=== PATIENT | female | born 1935 | race African-American/Black ===

== ENCOUNTER 2016-12-09 18:07 | Emergency (ER) ==
--- NOTE | 2016-12-09 19:59 | PROVIDER DOCUMENTATION ---
HPI-General Adult <Sya Haas - Last Filed: 12/09/16 20:38> - General Source: patient - History of Present Illness -Gen Adult Nature of Presenting Problems: Chuck RUBIN PRESENTS TO ED WITH C/O PT STATES SHE HAS HAD LOWER EXTREMITIES SWELLING FOR A FEW YEARS. PT STATES SHE HAS DIABETES, THYROID PROBLEMS AND GOUT. Location of Pain/Injury: reports: lower extremity Pain Radiation: reports: no radiation Quality of Pain: reports: aching Severity: reports: moderate Onset/Duration: reports: other (2 YEARS) Timing: reports: still present Context/Activities at Onset: reports: light activity Modifying Factors: improves with: nothing Similar Symptoms Previously?: No Recently seen or treated by another doctor?: No <Luis Eduardo Saucedo - Last Filed: 12/09/16 20:44> - General Chief Complaint: Edema Stated Complaint: SWOLLEN LEGS Time Seen by Provider: 12/09/16 19:43 Allergies/Adverse Reactions: Patient Allergies Allergy/AdvReac Type Severity Reaction Status Date / Time No Known Allergies Allergy Verified 12/09/16 18:42 Home Medications: Home Medication List Medication Instructions Recorded Confirmed Last Taken Type Furosemide [Lasix] 40 mg PO DAILY 12/09/16 12/09/16 Unknown History Spironolact/Hydrochlorothiazid 25 mg PO DAILY 12/09/16 12/09/16 Unknown History [Aldactazide 25-25 Tablet] Review of Systems - Adult - REVIEW OF SYSTEMS - ADULT Constitutional: denies: chills, fever Eyes: reports: no symptoms reported Ears, Nose, Mouth & Throat: reports: no symptoms reported Cardiovascular: denies: chest pain, palpitations, syncope Respiratory: denies: cough, shortness of breath, wheezing Gastrointestinal: denies: abdominal pain, diarrhea, nausea, vomiting Genitourinary: reports: no symptoms reported Musculoskeletal: denies: back pain, neck pain Integumentary: reports: other (SWELLING OF LOWER EXTREMITIES.) Neurological: denies: dizziness/vertigo, headache/migraines, syncope Psychiatric: reports: no symptoms reported Endocrine: reports: no symptoms reported Hematologic/Lymphatic: reports: no symptoms reported Allergic/Immunologic: reports: no symptoms reported All Other Systems: Reviewed and Negative <Luis Eduardo Saucedo - Last Filed: 12/09/16 20:44> Past History - Adult - PAST MEDICAL HISTORY-ADULT Review of Records: reports: Nursing Assessment Review, Medications Reviewed Endocrine/Immune: reports: Diabetes - IMMUNIZATION STATUS Childhood Immunizations: See Nurse Assessment Flu Vaccine: See Nurse Assessment - SOCIAL HISTORY Smoking: denies Substance Use: denies Alcohol Use Frequency: never Living Situation: family <Luis Eduardo Saucedo - Last Filed: 12/09/16 20:44> Physical Exam-General - CONSTITUTIONAL General Appearance: alert, mild distress - EYES Eyes: PERRL/EOMI, pink conjunctivae - HEAD, EARS, NOSE, MOUTH & THROAT HENMT: normocephalic/atraumatic, moist mucous membranes - NECK Neck: non-tender, full range of motion, supple - RESPIRATORY Respiratory: chest non-tender, lungs clear, normal breath sounds - CARDIOVASCULAR Cardiovascular: normal peripheral pulses, regular rate, rhythm - GASTROINTESTINAL (ABDOMEN) Abdominal Exam: normal bowel sounds, non tender, soft - LYMPHATIC Lymphatic: no adenopathy - MUSCULOSKELETAL Back Exam: normal inspection, no CVA tenderness, no vertebral tenderness Extremity: normal range of motion, pedal edema, swelling, tenderness - SKIN Integumentary: normal color, normal turgor, warm/dry - NEUROLOGIC Neurologic: grossly normal - PSYCHIATRIC Psych/Mental Status: oriented x 3 <Luis Eduardo Saucedo - Last Filed: 12/09/16 20:44> Progress - PLAN OF CARE/RESULTS Progress/Plan/Lab Results: Laboratory Tests 12/09/16 12/09/16 19:58 19:58 WBC 5.69 RBC 3.62 L Hgb 10.4 L Hct 33.1 L MCV 91.4 MCH 28.7 MCHC 31.4 L RDW Std Deviation 16.1 H Plt Count 288 MPV 8.8 Immature Gran % (Auto) 0.2 Neut % (Auto) 56.1 Lymph % (Auto) 30.9 [place] % (Auto) 10.5 H Eos % (Auto) 1.6 Baso % (Auto) 0.7 Immature Gran # (Auto) 0.01 Neut # (Auto) 3.19 Lymph # (Auto) 1.76 [place] # (Auto) 0.60 H Eos # (Auto) 0.09 Baso # (Auto) 0.04 Sodium 136 Potassium 4.7 Chloride 97 L Carbon Dioxide 27 Anion Gap 12 BUN 23 H Creatinine 1.9 H Estimated GFR/1.73 m2 25 BUN/Creatinine Ratio 12 Glucose 103 Calculated Osmolality 276 Calcium 9.3 Total Bilirubin 0.30 AST 19 ALT 12 Alkaline Phosphatase 97 Total Protein 7.0 Albumin 4.2 Globulin 3.0 Albumin/Globulin Ratio 2.0 Orders Category Date Time Status CBC WITH DIFF [HEME] Stat Lab 12/09/16 19:58 Completed COMPREHENSIVE METABOLIC PANEL [CHEM] Stat Lab 12/09/16 19:58 Completed TSH Stat Lab 12/09/16 19:58 Received Vital Signs - 24 hr 12/09/16 18:37 Temperature 99 F Pulse Rate 62 Respiratory 18 Rate Blood Pressure 169/67 O2 Sat by Pulse 100 Oximetry <Luis Eduardo Saucedo - Last Filed: 12/09/16 20:44> Departure - Departure Certified Medical Emergency: Emergent <Say Haas - Last Filed: 12/09/16 20:38> - Departure Time of Disposition Order: 20:44 Certified Medical Emergency: Emergent <Luis Eduardo Saucedo - Last Filed: 12/09/16 20:44> - Departure DIAGNOSIS: Chronic edema Chronic renal insufficiency Qualifiers: Chronic kidney disease stage: stage 3 (moderate) Qualified Code(s): N18.3 - Chronic kidney disease, stage 3 (moderate) Disposition: HOME 01 Condition: Stable Additional Instructions: elevate affected extremities, wear compressive stockings, followup with primary care provider Referrals: Sumaya Holden [Primary Care Provider] - Attestation - Scribe Verification/Attestation Scribe:: Luis Eduarod Saucedo Acting as Scribe for:: Say Haas Scribe documention review:: This chart was documented by a scribe and accurately reflects the service the provider performed and the decisions made by the provider. <Luis Eduardo Saucedo - Last Filed: 12/09/16 20:44> Physician Attestation
[2016-12-09 20:03] LABS: MANUAL DIFF NEEDED? NO
[2016-12-09 20:07] LABS: BASO% 0.7 % (0.0-0.8); EOS# 0.09 X1000 (0.0-0.7); EOS% 1.6 % (0.0-10.0); HEMATOCRIT 33.1 % (37.0-47.0); HEMOGLOBIN 10.4 g/dL (12.0-16.0); IMM GRAN# 0.01 X1000 (0.0-0.04); IMM GRAN% 0.2 % (0.0-0.5); LYMPH# 1.76 X1000 (1.2-3.4); LYMPH% 30.9 % (20.5-51.1); MCH 28.7 PG (27-31); MCHC 31.4 g/dL (33-37); MCV 91.4 FL (81-99); MONO% 10.5 % (1.7-9.3); MPV 8.8 FL (7.4-10.4); NEUT% 56.1 % (42.2-75.2); PLT 288 X1000 (130-400); RBC 3.62 XMIL (4.2-5.4)
[2016-12-09 20:24] LABS: ALBUMIN 4.2 g/dL (3.5-5.0); CALCIUM 9.3 mg/dL (8.8-10.2); POTASSIUM 4.7 mmol/L (3.5-5.1); TOTAL BILIRUBIN 0.3 mg/dL (0.20-1.00)
[2016-12-09 21:03] VITALS: BP 165/84
== END 2016-12-09 21:02 | disposition home or self-care (01) ==
LOC: P.ED 18:07
DX: R60.0 Localized edema (principal); N18.3 Chronic kidney disease, stage 3 (moderate); M79.605 Pain in left leg; M79.604 Pain in right leg; E11.9 Type 2 diabetes mellitus without complications; Z79.899 Other long term (current) drug therapy
CPT/HCPCS: 80053; 84443; 85025; 99283